=== PATIENT | male | born 1965 | race Two or more races ===

== ENCOUNTER 2019-04-22 22:50 | Emergency (ER) | payer SELFPAY ==
[~2019-04-22] VITALS: Ht 175.3 cm; Wt 88.0 kg
[2019-04-23] MEDS ORDERED: ACETAMINOPHEN 325MG TABLET PO ONE (00:15)
[2019-04-23 00:40] VITALS: BP 117/71
== END 2019-04-23 00:35 | disposition left against medical advice (07) ==
LOC: ER 22:50
DX: M79.672 Pain in left foot (principal); M79.671 Pain in right foot; J45.909 Unspecified asthma, uncomplicated; F17.200 Nicotine dependence, unspecified, uncomplicated
CPT/HCPCS: 99281